=== PATIENT | female | born 1990 | race American Indian/Alaskan Native ===

== ENCOUNTER 2017-06-10 11:39 | Observation (INO) | payer OTHER ==
--- NOTE | 2017-06-10 13:24 | Emergency Department Report ---
Blank Doc - Documentation Documentation: Patient is a 26-year-old black female who is presenting with 8 days of heavy vaginal bleeding. Patient also has some right lower quadrant right pelvic discomfort as well. Patient states pain is 6 out of 10 in severity. Patient has never had bleeding has lasted this long or been this heavy. CBC and BMP will be order mainly to make sure that G lites are normal and her hemoglobin hasn't dropped to the point where she needs blood transfusion. Patient also undergo ultrasound to rule out structural abnormalities causing bleeding as well. Ed
[2017-06-10 13:51] LABS: Basophils % (Auto) 0.3 % (0.0-1.8); Eosinophils % (Auto) 0.1 % (0.0-4.3); Hematocrit 34.7 % (30.3-42.9); Hemoglobin 10.8 gm/dl (10.1-14.3); Lymphocytes # (Auto) 1.4 K/mm3 (1.2-5.4); Lymphocytes % (Auto) 10.8 % (13.4-35.0); Mean Corpuscular HGB Conc 31 % (30-34); Mean Corpuscular Hemoglobin 24 pg (28-32); Mean Corpuscular Volume 77 fl (79-97); Monocytes # (Auto) 0.5 K/mm3 (0.0-0.8); Monocytes % (Auto) 4.3 % (0.0-7.3); Platelet Count 270 K/mm3 (140-440); Red Blood Count 4.49 M/mm3 (3.65-5.03); Red Cell Distribution Width 18.4 % (13.2-15.2)
[2017-06-10 13:53] LABS: HCG Qualitative,Urine Positive (Negative)
[2017-06-10 14:01] LABS: Bilirubin,Urine NEG (Negative); Blood,Urine LG (Negative); Color,Urine Yellow (Yellow); Mucus,Urine FEW /HPF; RBC,Urine > 182.0 /HPF (0.0-6.0)
[2017-06-10 14:07] LABS: BUN/Creatinine Ratio 17; Blood Urea Nitrogen 10 mg/dL (7-17); Calcium 8.8 mg/dL (8.4-10.2); Hemolysis Index 2
[2017-06-10] MEDS ORDERED: TYLENOL PO ONE (14:18)
--- NOTE | 2017-06-10 16:38 | Ultrasound Report ---
FINAL REPORT PROCEDURE: US OB < = 14 WEEKS FETUS TECHNIQUE: Real-time transabdominal sonography of the uterus, placenta, amniotic fluid, adnexa, and fetus was performed with image documentation. Measurements were obtained to determine age/size. M-mode Doppler was used to document heartbeat. CPT 35648 HISTORY: preg with vag bleeding COMPARISON: Transvaginal OB ultrasound also performed today. FINDINGS: This report is generated using images from both the transabdominal and a transvaginal scan both of which were performed today. The uterus measures 8.6 x 4.8 x 5.6 centimeter. No uterine masses are identified. Endometrial stripe measures up to 8.1 millimeter. Linear echogenic foci seen in the endometrial canal consistent with an IUD. There is no evidence of intrauterine . The small to moderate amount of nonspecific free fluid is seen in the cul-de-sac. Left ovary is unremarkable measuring 2.2 x 1.9 x 2.4 centimeter. The right ovary measures 5.3 x 4.6 x 4.1 centimeter and contains 4 centimeter mildly echogenic oval density. No heartbeat or pole is seen in the more echogenic density. Right ovary is otherwise unremarkable. Arterial flow is documented in the right ovary with Doppler imaging. No further pulsed Doppler assessment was obtained.. IMPRESSION: IUD visualized in the uterus as described. This appears to be in the lower uterine segment. No evidence of intrauterine . Small to moderate amount of free fluid seen in the cul-de-sac. Possible subtle echogenic nodule in the right ovary as described. This could represent corpus luteum of . Ectopic not entirely excluded. Right ovary is otherwise unremarkable. The left ovary showed no abnormality. Recommend following serial beta HCG levels and follow-up pelvic ultrasound if clinically indicated.
--- NOTE | 2017-06-10 16:40 | Ultrasound Report ---
FINAL REPORT PROCEDURE: US OB TRANSVAGINAL TECHNIQUE: Real-time transvaginal sonography of the uterus, placenta, amniotic fluid, adnexa, and fetus was performed with image documentation. Measurements were obtained to determine age/size. M-mode Doppler was used to document heartbeat. CPT 61872 HISTORY: preg with vag bleeding COMPARISON: Transabdominal OB ultrasound also performed today. FINDINGS: This report is generated using images from both the transabdominal and a transvaginal scan both of which were performed today. The uterus measures 8.6 x 4.8 x 5.6 centimeter. No uterine masses are identified. Endometrial stripe measures up to 8.1 millimeter. Linear echogenic foci seen in the endometrial canal consistent with an IUD. There is no evidence of intrauterine . The small to moderate amount of nonspecific free fluid is seen in the cul-de-sac. Left ovary is unremarkable measuring 2.2 x 1.9 x 2.4 centimeter. The right ovary measures 5.3 x 4.6 x 4.1 centimeter and contains 4 centimeter mildly echogenic oval density. No heartbeat or pole is seen in the more echogenic density. Right ovary is otherwise unremarkable. Arterial flow is documented in the right ovary with Doppler imaging. No further pulsed Doppler assessment was obtained.. IMPRESSION: IUD visualized in the uterus as described. This appears to be in the lower uterine segment. No evidence of intrauterine . Small to moderate amount of free fluid seen in the cul-de-sac. Possible subtle echogenic nodule in the right ovary as described. This could represent corpus luteum of . Ectopic not entirely excluded. Right ovary is otherwise unremarkable. The left ovary showed no abnormality. Recommend following serial beta HCG levels and follow-up pelvic ultrasound if clinically indicated.
--- NOTE | 2017-06-10 16:59 | Emergency Department Report ---
ED HPI - General Chief complaint: Urogenital-Female Stated complaint: PELVIC PAIN Time Seen by Provider: 06/10/17 13:05 Source: patient Mode of arrival: Ambulatory Limitations: No Limitations - History of Present Illness Initial comments: 26-year-old female presents to the ED with complaint of heavy vaginal bleeding and crampy to sharp lower abdominal pain slightly worse on right than left. Patient denies fever chills nausea or vomiting. States pain was intensifying which is why she came for evaluation. Patient states her last menstrual period was the first week of May 2017. Patient states she currently has a ParaGard IUD in place which was planted 4 years ago by her previous EDGER MACHINE OPERATOR. No other complaints MD Complaint: vaginal bleeding, vaginal discharge, abdominal trauma Onset/Timin -: days(s) Radiation: suprapubic Quality: cramping, aching, sharp Consistency: intermittent Associated symptoms: vaginal bleeding :: Yes Number of weeks : 4 Last menstrual period: 05/06/17 - Related Data : 4 Para: 2 Ab: 1 Allergies Allergy/AdvReac Type Severity Reaction Status Date / Time No Known Allergies Allergy Unverified 06/10/17 11:59 ED Review of Systems ROS: Stated complaint: PELVIC PAIN Other details as noted in HPI Constitutional: denies: chills, fever Eyes: denies: eye pain, eye discharge, vision change ENT: denies: ear pain, throat pain Respiratory: denies: cough, shortness of breath, wheezing Cardiovascular: denies: chest pain, palpitations Endocrine: no symptoms reported Gastrointestinal: denies: abdominal pain, nausea, diarrhea Genitourinary: abnormal menses (heavy painful vaginal bleeding). denies: urgency, dysuria, discharge Musculoskeletal: denies: back pain, joint swelling, arthralgia Skin: denies: rash, lesions Neurological: denies: headache, weakness, paresthesias Psychiatric: denies: anxiety, depression Hematological/Lymphatic: denies: easy bleeding, easy bruising ED Past Medical Hx - Past Medical History Previous Medical History?: No - Surgical History Past Surgical History?: No - Social History Smoking Status: Current Every Day Smoker ED Physical Exam - General Limitations: No Limitations General appearance: alert, in no apparent distress - Head Head exam: Present: atraumatic, normocephalic - Eye Eye exam: Present: normal appearance - ENT ENT exam: Present: mucous membranes moist - Neck Neck exam: Present: normal inspection - Respiratory Respiratory exam: Present: normal lung sounds bilaterally. Absent: respiratory distress - Cardiovascular Cardiovascular Exam: Present: regular rate, normal rhythm. Absent: systolic murmur, diastolic murmur, rubs, gallop - GI/Abdominal GI/Abdominal exam: Present: tenderness (some suprapubic discomfort on deep palpation towards right adnexal/right lower quadrant region), normal bowel sounds - Extremities Exam Extremities exam: Present: normal inspection - Back Exam Back exam: Present: normal inspection - Neurological Exam Neurological exam: Present: alert, oriented X3 - Psychiatric Psychiatric exam: Present: normal affect, normal mood - Skin Skin exam: Present: warm, dry, intact, normal color. Absent: rash ED Course Vital Signs 06/10/17 06/10/17 11:56 14:34 Temperature 98.1 F Pulse Rate 79 Respiratory 16 18 Rate Blood Pressure 135/88 O2 Sat by Pulse 100 Oximetry ED Medical Decision Making - Lab Data Result diagrams: 06/10/17 13:34 06/10/17 13:34 - Medical Decision Making A/P: , abdominal pain, vaginal bleeding, suspicion for ectopic 1-case discussed with Dr. Angelo, Dr. Cutler of EDGER MACHINE OPERATOR consulted who also examined the patient 2-to Dr. Cutler patient to be admitted for further management and observation. Patient is positive with lower abdominal pain. Ultrasound read cannot exclude ectopic . 3-Rh+ 4-clinical plan discussed with patient Critical care attestation.: If time is entered above; I have spent that time in minutes in the direct care of this critically ill patient, excluding procedure time. ED Disposition Clinical Impression: Encounter for assessment for suspected ectopic Qualifiers: Weeks of gestation: less than 8 weeks Qualified Code(s): Z3A.01 - Less than 8 weeks gestation of Disposition: OP ADMIT IP TO THIS HOSP Is pt being admited?: No Does the pt Need Aspirin: No Condition: Stable Referrals: PRIMARY CARE, [Primary Care Provider] - 3-5 Days
[2017-06-10] MEDS ORDERED: ZOFRAN IV PRN (17:09)
[2017-06-10] MEDS ORDERED: TYLENOL PO PRN (17:09)
[2017-06-10] MEDS ORDERED: NORCO 5/325 PO PRN (17:09)
[2017-06-10] MEDS ORDERED: SODIUM CHLORIDE FLUSH SYRINGE 10 ML IV PRN (17:09)
[2017-06-10] MEDS ORDERED: NACL 0.9% 1000 ML 1,000 ML IV SCH (18:00)
[2017-06-10] MEDS ORDERED: METHOTREXATE IM ONE (18:13)
--- NOTE | 2017-06-10 20:29 | Short Stay Summary ---
Short Stay Documentation Date of service: 06/10/17 Narrative H&P: Is a 26-year-old black female para 1111 last menstrual period was approximately 05/15/2017. Presents to the emergency room with complaints of several days of a lower abdominal pain greater on the right with episodes of increasing severe sharp right lower quadrant pain. Patients with a ParaGard IUD in place. Workup in emergency room did reveal a positive test with an ultrasound which showed the IUD in place complex mass in her right ovary and small amount of fluid in the pelvis possible right ectopic versus corpus luteal cyst. - History Past Medical History: No medical history Social history: no significant social history - Allergies and Medications Current Medications: Allergies No Known Allergies Allergy (Unverified 06/10/17 11:59) Home Medications Medication Instructions Recorded Confirmed Last Taken Type Ibuprofen [Motrin 600 MG tab] 800 mg PO Q6H PRN #30 tablet 06/10/17 Unknown Rx oxyCODONE /ACETAMINOPHEN [Percocet 1 - 2 tab PO Q4H PRN #30 tablet 06/10/17 Unknown Rx 5/325 mg] Active Medications Acetaminophen (Tylenol) 650 mg PO Q4H PRN PRN Reason: Pain MILD(1-3)/Fever >100.5/BRANCH Acetaminophen/Hydrocodone Bitart (Paia 5/325) 2 each PO Q6H PRN PRN Reason: Pain, Moderate (4-6) Last Admin: 06/10/17 19:37 Dose: 2 each Sodium Chloride (Nacl 0.9% 1000 Ml) 1,000 mls @ 125 mls/hr IV DIRECT MAGED Ondansetron HCl (Zofran) 4 mg IV Q8H PRN PRN Reason: Nausea And Vomiting Sodium Chloride (Sodium Chloride Flush Syringe 10 Ml) 10 ml IV BID MAGED Sodium Chloride (Sodium Chloride Flush Syringe 10 Ml) 10 ml IV PRN PRN PRN Reason: LINE FLUSH - Physical exam Breasts: deferred Heart: Regular rate Gastrointestinal: normoactive bowel sounds, tenderness (right lower quadrant), no masses, guarding (right lower quadrant), obese Rectal Exam: deferred Extremities: no ischemia Neurological: Normal gait - Hospital course Hospital course: Discuss patient diagnosis of ectopic versus early intrauterine . Patient is tender on exam and has some right lower quadrant localized pain consistent with the ultrasound. Patient also with increased risk of ectopic with IUD in place. Discuss with the patient the suspected management of a possible early intrauterine versus treatment of ectopic with methotrexate. Patient desires treatment methotrexate due to she says severity of pain and does not feel that this is a normal . Discussed the nature of methotrexate treatment. Discussed chemotherapy drug. Discussed side effects of the medication and possible pain after receiving medication. Patient states she is very familiar medication states that her mother recently was treated with methotrexate for ectopic recently and desires to proceed - Disposition Condition at discharge: Stable Disposition: DC-01 TO HOME OR SELFCARE - Discharge Diagnoses (1) Encounter for assessment for suspected ectopic Status: Acute Short Stay Discharge Plan Activity: advance as tolerated Diet: regular Additional Instructions: Call your doctor immediately for: * Fever > 100.5 * Heavy vaginal bleeding ( >1 pad per hour) * Severe persistent headache * Shortness of breath * Reddened, hot, painful area to leg or breast Severe pelvic pain Appointment made for follow-up on 06/16/2017 Follow up with: PRIMARY CARE, [Primary Care Provider] - 3-5 Days Forms: [facility] Discharge Summary, Methotrexate D/C Instructions, Discharge Signature Page Prescriptions: Ibuprofen [Motrin 600 MG tab] 800 mg PO Q6H PRN #30 tablet PRN Reason: Pain oxyCODONE /ACETAMINOPHEN [Percocet 5/325 mg] 1 - 2 tab PO Q4H PRN #30 tablet PRN Reason: Pain
[2017-06-10 21:36] VITALS: BP 116/75
[2017-06-10] MEDS ORDERED: SODIUM CHLORIDE FLUSH SYRINGE 10 ML IV SCH (22:00)
== END 2017-06-10 23:25 | disposition home or self-care (01) ==
LOC: ED 11:39 → OB 17:09
PROVIDERS: ADMIT Obstetrics & Gynecology; ATTEND Obstetrics & Gynecology
DX: O46.91 Antepartum hemorrhage, unspecified, first trimester (principal); O26.891 Other specified pregnancy related conditions, first trimester; R10.30 Lower abdominal pain, unspecified; O99.331 Smoking (tobacco) complicating pregnancy, first trimester; F17.200 Nicotine dependence, unspecified, uncomplicated; Z3A.01 Less than 8 weeks gestation of pregnancy
CPT/HCPCS: 36415; 76801; 76817; 80048; 81001; 81025; 84702; 85025; 86900; 86901; 96372; 99285; G0378; J9260

== ENCOUNTER 2017-06-16 10:52 | Emergency (ER) | payer SELFPAY ==
[2017-06-16 12:07] VITALS: BP 139/91
[2017-06-16] MEDS ORDERED: TYLENOL PO ONE (14:01)
--- NOTE | 2017-06-16 15:01 | Emergency Department Report ---
Chief Complaint: Medical Clearance Stated Complaint: BLOOD WORK Time Seen by Provider: 06/16/17 13:31 - HPI History of Present Illness: The patient's 26-year-old female who presents for follow-up status post treatment of tubal ectopic . The patient states that she was informed by her CONDITIONING YARD SUPERVISOR 2 present for repeat beta hCG level for training. She shares that she has expressed some mild cramping lower abdominal pain for the past week , and minimal vaginal bleeding. The patient denies fever, chills, night sweats, diarrhea, blood in the stool, dark tarry stool, dysuria, hematuria, flank pain, genital discharge, inability to pass flatus. - Exam Vital Signs: Vital Signs 06/16/17 11:59 Temperature 98.8 F Pulse Rate 75 Respiratory 18 Rate Blood Pressure 139/91 O2 Sat by Pulse 100 Oximetry MSE screening note: Focused history and physical exam performed. Due to findings the following was ordered: ED Disposition for MSE Condition: Stable Referrals: PRIMARY CARE, [Primary Care Provider] - 3-5 Days
--- NOTE | 2017-06-16 16:11 | Emergency Department Report ---
ED Recheck HPI - General Chief Complaint: Medical Clearance Stated Complaint: BLOOD WORK Time Seen by Provider: 06/16/17 13:31 Source: patient Mode of arrival: Ambulatory Limitations: No Limitations - History of Present Illness Initial Comments: This is a 26-year-old female nontoxic, well nourished in appearance, no acute signs of distress presents to the ED for follow-up status post treatment shots of tubal ectopic . Patient stated that her Dr. Gann instructed patient to go to the ED for a HCG blood test. Patient stated that has expressed some mild cramping lower abdominal pain for the past week, and minimal vaginal bleeding. But now has subsided. The patient denies fever, chills, night sweats, diarrhea, blood in the stool, dark tarry stool, dysuria, hematuria, flank pain, genital discharge, inability to pass flatus. Patient denies any allergies or significant past medical history. MD Complaint: abnormal lab Symptoms Since Prior Visit: no new symptoms, improved Associated Symptoms: none. denies: fever, chills, chest pain, shortness of breath, rash, malaise, nasuea, abdominal pain - Related Data Previous Rx's Medication Instructions Recorded Last Taken Type Ibuprofen [Motrin 600 MG tab] 800 mg PO Q6H PRN #30 tablet 06/10/17 Unknown Rx oxyCODONE /ACETAMINOPHEN [Percocet 1 - 2 tab PO Q4H PRN #30 tablet 06/10/17 Unknown Rx 5/325 mg] Allergies Allergy/AdvReac Type Severity Reaction Status Date / Time No Known Allergies Allergy Unverified 06/10/17 11:59 ED Review of Systems ROS: Stated complaint: BLOOD WORK Other details as noted in HPI Constitutional: denies: chills, fever Eyes: denies: eye pain, eye discharge, vision change ENT: denies: ear pain, throat pain Respiratory: denies: cough, shortness of breath, wheezing Cardiovascular: denies: chest pain, palpitations Endocrine: no symptoms reported Gastrointestinal: denies: abdominal pain, nausea, diarrhea Genitourinary: denies: urgency, dysuria, discharge Musculoskeletal: denies: back pain, joint swelling, arthralgia Skin: denies: rash, lesions Neurological: denies: headache, weakness, paresthesias Psychiatric: denies: anxiety, depression Hematological/Lymphatic: denies: easy bleeding, easy bruising ED Past Medical Hx - Past Medical History Previous Medical History?: Yes Hx Congestive Heart Failure: No Hx Diabetes: No Hx Asthma: No Hx COPD: No Additional medical history: IUD, Methotrexate injection for tubal - Surgical History Past Surgical History?: Yes Additional Surgical History: tubal - Social History Smoking Status: Current Every Day Smoker Substance Use Type: Alcohol, Prescribed - Medications Home Medications: Home Medications Medication Instructions Recorded Confirmed Last Taken Type Ibuprofen [Motrin 600 MG tab] 800 mg PO Q6H PRN #30 tablet 06/10/17 Unknown Rx oxyCODONE /ACETAMINOPHEN [Percocet 1 - 2 tab PO Q4H PRN #30 tablet 06/10/17 Unknown Rx 5/325 mg] ED Physical Exam - General Limitations: No Limitations General appearance: alert, in no apparent distress - Head Head exam: Present: atraumatic, normocephalic - Eye Eye exam: Present: normal appearance - ENT ENT exam: Present: mucous membranes moist - Neck Neck exam: Present: normal inspection - Respiratory Respiratory exam: Present: normal lung sounds bilaterally. Absent: respiratory distress - Cardiovascular Cardiovascular Exam: Present: regular rate, normal rhythm. Absent: systolic murmur, diastolic murmur, rubs, gallop - GI/Abdominal GI/Abdominal exam: Present: soft, normal bowel sounds - Extremities Exam Extremities exam: Present: normal inspection - Back Exam Back exam: Present: normal inspection - Neurological Exam Neurological exam: Present: alert, oriented X3 - Psychiatric Psychiatric exam: Present: normal affect, normal mood - Skin Skin exam: Present: warm, dry, intact, normal color. Absent: rash ED Course Vital Signs 06/16/17 11:59 Temperature 98.8 F Pulse Rate 75 Respiratory 18 Rate Blood Pressure 139/91 O2 Sat by Pulse 100 Oximetry - Reevaluation(s) Reevaluation #1: 06/16/17 16:09 Patient is speaking in full sentences with no signs of distress noted. - Consultations Consultation #1: 06/16/17 16:09 Patient has been consulted with Dr. White about patient history, physical exam, and labs and examined and screened patient and agrees to ED plan of care and discharge plan of care. ED Recheck MDM - Medical Decision Making This is a 26-year-old female that presents for HCG follow-up. Patient was seen by Dr. Gann on 06/10/2017 and had a and patient today has a decreased hCG level of 2018. I called office and spoke to Dr. Lopez which he stated to me that patient was supposed to be followed up with her in the office but stated that she only needed a repeat of hCG. I asked Dr.Dr. Lopez if we should get another OB US and stated not necessary as patient received treatment for etocpic and HCG decreasing. Jessica also stated that another ECG should be performed next week and stated to me that she should've follow-up in their office. I referred and instruct the patient with a address to Dr. Jessica Gann with follow-up in next week. At time of discharge, the patient does not seem toxic or ill in appearance. No acute signs of distress noted. Patient agrees to discharge treatment plan of care. No further questions noted by the patient. Critical care attestation.: If time is entered above; I have spent that time in minutes in the direct care of this critically ill patient, excluding procedure time. ED Disposition Clinical Impression: Routine lab draw Disposition: DC- TO HOME OR SELFCARE Is pt being admited?: No Does the pt Need Aspirin: No Condition: Stable Additional Instructions: Follow-up with a Dr. Gann in 1 week for repeat HCG levels or if symptoms worsen and continue return to emergency room as soon as possible. Referrals: PRIMARY CARE, [Primary Care Provider] - 3-5 Days ZOE GANN MD [Staff Physician] - 3-5 Days [facility] [Outside] - 3-5 Days [facility] [Outside] - 3-5 Days Forms: Work/School Release Form(ED)
== END 2017-06-16 16:22 | disposition home or self-care (01) ==
LOC: ED 10:52
DX: Z01.411 Encounter for gynecological examination (general) (routine) with abnormal findings (principal); F17.200 Nicotine dependence, unspecified, uncomplicated
CPT/HCPCS: 36415; 84702; 99283

== ENCOUNTER 2017-12-03 06:11 | Emergency (ER) | payer MEDICAID | END 2017-12-03 09:00 | LOC: ED 06:11 | DX: R51 Headache (principal); Z53.21 Procedure and treatment not carried out due to patient leaving prior to being seen by health care provider ==

== ENCOUNTER 2018-11-30 13:00 | Emergency (ER) | payer SELFPAY ==
[2018-11-30 13:19] VITALS: BP 136/95
--- NOTE | 2018-11-30 13:39 | Emergency Department Report ---
Chief Complaint: Headache Stated Complaint: HEADACHE/NARESH/CHEST PAIN Time Seen by Provider: 11/30/18 13:29 - HPI History of Present Illness: This is a pt who presents for continued sinusitis stating she has been seen by her pcp and given antibiotics with no relief She states she was refferred to ENT and has an appt next month She denies f/c/n/v - ROS Review of Systems: As noted in HPI - Exam Vital Signs: Vital Signs 11/30/18 13:17 Temperature 98.4 F Pulse Rate 74 Respiratory 16 Rate Blood Pressure 136/95 O2 Sat by Pulse 99 Oximetry Physical Exam: GEN: aao x 3 HEENT: atraumatic, maxillary sinus tenderness MSE screening note: Focused history and physical exam performed. Due to findings the following was ordered: ED Medical Decision Making - Medical Decision Making 28 y o f presents with allergic inusitis Discussed f/u with pcp VSS , no acute distress ED Disposition for MSE Clinical Impression: Allergic sinusitis Disposition: - TO HOME OR SELFCARE Is pt being admited?: No Does the pt Need Aspirin: No Condition: Stable Instructions: Sinusitis (ED) Additional Instructions: follow up with the ENT as discussed with your PCP follow up with your PCP Prescriptions: Levmetamfetamine [Nasal Decongestant Inhaler] 1 spray NS BID #1 inhaler Pseudoephedrine ER [Sudafed 12 Hr] 120 mg PO BID #20 tablet.er Referrals: [facility] [Outside] - 3-5 Days [facility] [Outside] - 3-5 Days Forms: Accompanied Note, Work/School Release Form(ED) Time of Disposition: 14:00
== END 2018-11-30 17:24 | disposition home or self-care (01) ==
LOC: ED 13:00
DX: J30.9 Allergic rhinitis, unspecified (principal)